=== PATIENT | female | born 1965 | race Caucasian/White ===

== ENCOUNTER 2019-03-06 23:06 | Inpatient (IN) ==
[2019-03-06] MEDS ORDERED: Ondansetron 4 MG/2 ML VIAL IVP ONE (23:36)
[2019-03-07 00:37] LABS: Bacteria,Urine Many per hpf (None-Few); Bilirubin,Urine Negative (Negative); Blood,Urine Negative (Negative); Clarity,Urine Cloudy (Clear); Color,Urine Yellow (Yellow); Glucose,Urine (UA) Normal (Normal); Ketones,Urine Negative (Negative); Leukocyte Esterase,Urine Trace (Negative); Nitrite,Urine Negative (Negative); Protein,Urine 30 mg/dL (Neg-Trace); Specific Gravity,Urine 1.014 (1.010-1.025); Squamous Epithelial Cell,Urine Many per lpf (None-Few); Urobilinogen,Urine Normal (Normal); WBC,Urine 30-50 per hpf (0-3)
[2019-03-07 00:38] LABS: Acetaminophen < 10 mcg/mL (10-20); BUN/Creatinine Ratio 11 (6-26); Blood Urea Nitrogen 9 mg/dL (6-20); Calcium 9.4 mg/dL (8.6-10.3); Carbon Dioxide 23 mEq/L (23-29); Chloride 103 mEq/L (98-107); Ethanol 135 mg/dL (Less than 10); Glucose 120 mg/dL (70-105); Osmolality,Calculated 300 (280-300); Potassium 2.4 mEq/L (3.5-5.1); Salicylate < 2.5 mg/dL (15.0-30.0); Sodium 145 mEq/L (136-145); eGFR For African Americans > 60 (> 60); eGFR For Non-African Americans > 60 (> 60)
[2019-03-07 00:43] LABS: Amphetamine Screen,Urine Positive ng/mL (Cutoff=1000); Barbiturate Screen,Urine Negative ng/mL (Cutoff=200); Benzodiazepines Screen,Urine Negative ng/mL (Cutoff=200); Cannabinoid Screen,Urine Negative ng/mL (Cutoff = 50); Cocaine Screen,Urine Negative ng/mL (Cutoff= 300); Opiate Screen,Urine Negative ng/mL (Cutoff=300); Phencyclidine Screen,Urine Negative ng/mL (Cutoff=25)
[2019-03-07 00:57] LABS: Basophils # 0.1 K/mcL (0.0-0.2); Basophils % 0.4 %; Eosinophils # 0.1 K/mcL (0.0-0.6); Eosinophils % 0.3 %; Hemoglobin 17.6 g/dL (11.5-15.4); Immature Granulocytes % 1.7 % (0-4); Lymphocytes % 18.4 %; Mean Corpuscular HGB Conc 35.2 g/dL (31.6-35.5); Mean Corpuscular Volume 96.5 fL (83.0-100.0); Mean Platelet Volume 9.1 fL (9.4-12.4); Monocytes # 1.3 K/mcL (0.0-1.3); Monocytes % 7.9 %; Neutrophils # 11.6 K/mcL (1.6-8.9); Platelet Count 440 K/mcL (140-400); Red Blood Count 5.18 M/mcL (3.82-4.97); Red Cell Distribution Width 12.8 % (11.5-14.5); Segmented Neutrophils % 71.3 %; White Blood Count 16.3 K/mcL (4.3-11.1)
[2019-03-07 01:12] LABS: Hyaline Casts,Urine None Seen per lpf (None-Few); RBC,Urine 0-3 per hpf (0-3)
[2019-03-07] MEDS ORDERED: *HR* LORazepam 2 MG/ML VIAL IVP PRN (07:22)
[2019-03-07 07:49] LABS: Basophils # 0.1 K/mcL (0.0-0.2); Basophils % 0.5 %; Eosinophils % 0.2 %; Hematocrit 42.4 % (35.3-44.9); Immature Granulocytes % 0.8 % (0-4); Lymphocytes # 2.4 K/mcL (0.6-4.6); Lymphocytes % 17.7 %; Mean Corpuscular HGB Conc 35.4 g/dL (31.6-35.5); Mean Corpuscular Hemoglobin 33.6 pg (28.0-33.3); Mean Corpuscular Volume 95.1 fL (83.0-100.0); Monocytes % 7.1 %; Neutrophils # 10.1 K/mcL (1.6-8.9); Platelet Count 319 K/mcL (140-400); Red Blood Count 4.46 M/mcL (3.82-4.97); Red Cell Distribution Width 12.8 % (11.5-14.5); Segmented Neutrophils % 73.7 %; White Blood Count 13.7 K/mcL (4.3-11.1)
[2019-03-07] MEDS ORDERED: MOM Conc 10 ML UD.LIQ PO PRN (08:03)
[2019-03-07] MEDS ORDERED: Naloxone 0.4 MG/ML INJ IVP PRN (08:03)
[2019-03-07] MEDS ORDERED: Ondansetron 4 MG/2 ML VIAL IVP PRN (08:03)
[2019-03-07 08:10] LABS: BUN/Creatinine Ratio 15 (6-26); Blood Urea Nitrogen 9 mg/dL (6-20); Calcium 8.8 mg/dL (8.6-10.3); Carbon Dioxide 29 mEq/L (23-29); Chloride 99 mEq/L (98-107); Glucose 97 mg/dL (70-105); Osmolality,Calculated 289 (280-300); Potassium 3.6 mEq/L (3.5-5.1); Sodium 140 mEq/L (136-145); eGFR For African Americans > 60 (> 60); eGFR For Non-African Americans > 60 (> 60)
[2019-03-07] MEDS: Folic Acid 1 MG TABLET PO SCH (09:02)
[2019-03-07] MEDS: Thiamine (B-1) 100 MG TABLET PO SCH (09:02)
[2019-03-07] MEDS: Vitamin B Complex/Vit C/Vit E 1 EACH TABLET PO SCH (09:02)
[2019-03-07] MEDS: Potassium Chloride Elixir 20 MEQ/15 ML UDC PO ONE (09:02)
[2019-03-07] MEDS: *HR* Heparin 5,000 UNIT/ML VIAL SQ SCH ×2 (16:07→21:01)
[2019-03-07] MEDS: Pantoprazole 40 MG VIAL IVP SCH (16:07)
[2019-03-08 02:46] VITALS: BP 130/77
[2019-03-08] MEDS: *HR* Heparin 5,000 UNIT/ML VIAL SQ SCH ×2 (05:31→15:04)
[2019-03-08 05:53] LABS: Basophils # 0.1 K/mcL (0.0-0.2); Basophils % 0.5 %; Eosinophils # 0.1 K/mcL (0.0-0.6); Eosinophils % 0.7 %; Hematocrit 46.8 % (35.3-44.9); Hemoglobin 16.2 g/dL (11.5-15.4); Immature Granulocytes % 0.3 % (0-4); Lymphocytes # 1.7 K/mcL (0.6-4.6); Mean Corpuscular HGB Conc 34.6 g/dL (31.6-35.5); Mean Corpuscular Hemoglobin 33.5 pg (28.0-33.3); Mean Corpuscular Volume 96.7 fL (83.0-100.0); Mean Platelet Volume 8.9 fL (9.4-12.4); Monocytes % 9.5 %; Neutrophils # 7.6 K/mcL (1.6-8.9); Platelet Count 321 K/mcL (140-400); Red Blood Count 4.84 M/mcL (3.82-4.97); Red Cell Distribution Width 12.7 % (11.5-14.5); White Blood Count 10.4 K/mcL (4.3-11.1)
[2019-03-08 06:16] LABS: BUN/Creatinine Ratio 18 (6-26); Blood Urea Nitrogen 15 mg/dL (6-20); Carbon Dioxide 25 mEq/L (23-29); Chloride 95 mEq/L (98-107); Glucose 81 mg/dL (70-105); Osmolality,Calculated 282 (280-300); Potassium 3.1 mEq/L (3.5-5.1); Sodium 136 mEq/L (136-145); eGFR For African Americans > 60 (> 60); eGFR For Non-African Americans > 60 (> 60)
[2019-03-08] MEDS: Folic Acid 1 MG TABLET PO SCH (09:11)
[2019-03-08] MEDS: Vitamin B Complex/Vit C/Vit E 1 EACH TABLET PO SCH (09:11)
[2019-03-08] MEDS: Pantoprazole 40 MG VIAL IVP SCH (09:11)
[2019-03-08] MEDS: Thiamine (B-1) 100 MG TABLET PO SCH (09:11)
[2019-03-08] MEDS ORDERED: Potassium Chloride 20 MEQ, Lidocaine 1% 2 ML in 0.9 % Sodium Chloride 250 ML IVPB ONE (13:15)
[2019-03-08] MEDS ORDERED: Nicotine 7 MG PATCH.TD24 TD SCH (17:15)
[2019-03-09] MEDS ORDERED: Folic Acid 1 MG TABLET PO SCH (09:00)
[2019-03-09] MEDS ORDERED: Thiamine (B-1) 100 MG TABLET PO SCH (09:00)
[2019-03-09] MEDS ORDERED: Vitamin B Complex/Vit C/Vit E 1 EACH TABLET PO SCH (09:00)
[2019-03-09] MEDS ORDERED: Nicotine 7 MG PATCH.TD24 TD SCH (09:00)
== END 2019-03-08 18:07 | DRG 817 ==
LOC: 3BNU 23:06 → EMEROOARM 23:06 → SUATTDRO 03-07 02:01 → 3BNU 03-07 02:17
PROVIDERS: ADMIT Internal Medicine; ATTEND Family Medicine

== ENCOUNTER 2019-03-08 18:02 | Inpatient (IN) ==
[2019-03-08] MEDS ORDERED: MOM Conc 10 ML UD.LIQ PO PRN (18:17)
[2019-03-08] MEDS ORDERED: *HR* LORazepam 2 MG/ML VIAL IM PRN (18:17)
[2019-03-08] MEDS ORDERED: *HR* LORazepam 1 MG TABLET PO PRN (18:17)
[2019-03-08] MEDS ORDERED: Mag Hydrox/Al Hydrox/Simeth 30 ML UDC PO PRN (18:17)
[2019-03-08] MEDS ORDERED: Haloperidol Lactate 5 MG/ML VIAL IM PRN (18:17)
[2019-03-08] MEDS ORDERED: Acetaminophen 325 MG TABLET PO PRN (18:17)
[2019-03-08] MEDS ORDERED: traZODone 50 MG TABLET PO PRN (18:17)
[2019-03-08] MEDS: hydrOXYzine pamoate 25 MG CAPSULE PO PRN (20:42)
[2019-03-08] MEDS: Nicotine 2 MG GUM BC PRN (21:05)
[2019-03-09] MEDS: hydrOXYzine pamoate 25 MG CAPSULE PO PRN ×4 (09:02→21:36)
[2019-03-09] MEDS: Nicotine 2 MG GUM BC PRN (09:05)
[2019-03-09] MEDS: Thiamine (B-1) 100 MG TABLET PO SCH (11:37)
[2019-03-09] MEDS: Folic Acid 1 MG TABLET PO SCH (11:37)
[2019-03-09] MEDS: Vitamin B Complex/Vit C/Vit E 1 EACH TABLET PO SCH (11:37)
[2019-03-10] MEDS: Folic Acid 1 MG TABLET PO SCH (09:07)
[2019-03-10] MEDS: Thiamine (B-1) 100 MG TABLET PO SCH (09:07)
[2019-03-10] MEDS: Vitamin B Complex/Vit C/Vit E 1 EACH TABLET PO SCH (09:08)
[2019-03-10 09:34] VITALS: BP 129/84
[2019-03-10] MEDS: hydrOXYzine pamoate 25 MG CAPSULE PO PRN (10:06)
== END 2019-03-10 11:30 | disposition home or self-care (01) | DRG 817 ==
LOC: 1ANU 18:02
PROVIDERS: ADMIT Psychiatry & Neurology Psychiatry; ATTEND Psychiatry & Neurology Psychiatry